=== PATIENT | male | born 1990 | race Caucasian/White ===

== ENCOUNTER 2021-04-28 06:55 | Emergency (ER) | payer SELFPAY ==
[~2021-04-28] VITALS: Ht 185.4 cm; Wt 95.3 kg
[2021-04-28 06:55] VITALS: BP 132/70
--- NOTE | 2021-04-28 07:09 | NUR ---
PT TAKEN TO BED 10.
--- NOTE | 2021-04-28 07:26 | NUR ---
31 YO M BIBA FROM HOME WITH C/O OF ANXIETY X0300 AM. PT WAS HAVING HEART PALPITATIONS AND CHEST PAIN. PT DENIES CHEST PAIN AT THIS TIME. HX:ANXIETY RX:CHAKA ZAMAN
[2021-04-28] MEDS ORDERED: ATA25 PO (07:30)
[2021-04-28 07:40] VITALS: BP 132/70
== END 2021-04-28 07:40 | disposition home or self-care (01) ==
LOC: MED 06:55
DX: F41.9 Anxiety disorder, unspecified (principal); R00.2 Palpitations
CPT/HCPCS: 93005; 99283